=== PATIENT | female | born 1980 | race Caucasian/White ===

== ENCOUNTER 2016-09-01 17:56 | Emergency (ER) | payer OTHER ==
[~2016-09-01] VITALS: Ht 160 cm; Wt 80.0 kg
[2016-09-01 18:05] VITALS: Ht 160 cm; Wt 80.0 kg
[2016-09-01] MEDS ORDERED: KETOROLAC 30 MG INJ IM STA (18:18)
[2016-09-01] MEDS ORDERED: OXYCODONE/ACETAMINOPHEN (5/325) TAB PO ONE (18:30)
--- NOTE | 2016-09-01 18:36 | RADRPT ---
PROCEDURE: Chest x-ray CLINICAL INDICATION: Trauma with chest pain TECHNIQUE: Chest single view COMPARISON: None FINDINGS: The heart is normal in size. The pulmonary vessels are normal in caliber. There is low lung volumes with bibasilar atelectasis and accentuation lung markings. No pneumothorax is seen. Costophrenic angles are sharp. Bony thorax is unremarkable. IMPRESSION: 1. Low lung volumes with basilar atelectasis. 2. Right lower lung calcified granuloma. 3. No pneumothorax RPTAT: HH .Shen Myers MD, MD Date Time Electronically viewed and signed by .Shen Myers MD, MD on 09/01/2016 18:36 .W/
[2016-09-01] MEDS ORDERED: IBUP-1542 PO (18:54)
[2016-09-01] MEDS ORDERED: CARI350T PO (18:54)
[2016-09-01 19:26] VITALS: BP 107/63; PULSE 78; RESP 20; TEMP 98.1
--- NOTE | 2016-09-01 19:58 | ERD ---
ER Documentation Chief Complaint Date/Time DATE: 09/01/16 TIME: 19:56 Chief Complaint IRON POLE FELL ON HER CHEST HPI 35-year-old woman complains of left lateral chest wall pain and pain to the chest underneath her left breast after a metal pole fell onto her chest. She denies head or neck injury, no difficulty breathing, no loss of consciousness no complaints of paresis or paresthesias. ROS All systems reviewed and are negative except as per history of present illness. Medications Home Meds Active Scripts Carisoprodol* (Soma*) 350 Mg Tablet, 350 MG PO TID for PAIN, #12 TAB Prov:CHRISTIAN VALENTIN MD 09/01/16 Ibuprofen* (Ibuprofen*) 600 Mg Tablet, 600 MG PO Q8 for PAIN AND/OR INFLAMMATION , #30 TAB Prov:CHRISTIAN VALENTIN MD 09/01/16 PMhx/Soc Medical and Surgical Hx: pt denies Medical Hx, pt denies Surgical Hx History of Surgery: No Anesthesia Reaction: No Hx Neurological Disorder: No Hx Respiratory Disorders: No Hx Cardiac Disorders: No Hx Alcohol Use: No Hx Substance Use: No Hx Tobacco Use: No Smoking Status: Never smoker FmHx Family History: No diabetes Physical Exam Vitals Vital Signs Date Time Temp Pulse Resp B/P Pulse Ox O2 Delivery O2 Flow Rate FiO2 09/01/16 19:26 98.1 78 20 107/63 100 Room Air 09/01/16 18:05 98.1 58 20 100/56 99 Physical Exam GENERAL: Well-developed, well-nourished, well-hydrated, in no apparent distress , looks nontoxic in appearance HEENT: Moist mucous membranes, pink conjunctiva, no cervical spine tenderness or step-off deformities, no goiter, no jaundice or icterus, extraocular movements intact without pain. No submandibular induration, and no pharyngeal erythema NEURO: Alert and oriented 3, cranial nerves II through XII intact bilaterally, pupils equal round reactive to light, no focal deficits or facial asymmetry, sensation intact distally Strength 5/5 in upper and lower extremities bilaterally CARDIAC: Regular rate and rhythm, no murmurs rubs or gallops LUNGS: Clear bilaterally no wheezing crackles or stridor ABDOMEN: Soft nontender, no guarding, no rigidity, no rebound, no psoas sign no obturator sign. Normoactive bowel sounds SKIN: Warm and dry to touch, no abrasions, contusions, or hematomas, no lacerations, no ecchymosis, no target lesions, and without ulcers EXTREMITIES: No clubbing cyanosis or edema, calves are bilaterally symmetrical, no Homans sign, no popliteal cord sign. Distal pulses equal and bilateral PSYCH: Normal affect without agitation or irritability Results 24 hrs Current Medications Medications (Trade) Dose Ordered Sig/Rosie Route PRN Reason Start Time Stop Time Status Last Admin Dose Admin Ketorolac Tromethamine (Toradol) 30 mg ONCE STAT IM 09/01/16 18:18 09/01/16 18:20 DC 09/01/16 18:38 Oxycodone/ Acetaminophen (Percocet (5/ 325)) 1 tab ONCE ONCE PO 09/01/16 18:30 09/01/16 18:31 DC 09/01/16 18:38 Procedures/MDM There is moderate reproducible tenderness over the left lateral chest and chest underneath the left breast, no soft tissue contusion, no crepitus, no bony deformity or ecchymosis was noted. Chest X-ray 1V Interpreted by me: Soft Tissue: No acute abnormalities Bones: No acute abnormalities Mediastinum/Cardiac Silhouette/Lungs: No acute abnormalities I administered Toradol 30 mg intramuscular injection and Percocet 1 tablet p.o. with good pain control. Differential diagnoses considered, included but not limited to acute coronary syndrome, pulmonary embolism, aortic dissection, abdominal aortic aneurysm, sepsis, stroke, meningitis, encephalitis, pneumonia, appendicitis, cholecystitis , bowel obstruction, pyelonephritis, nephrolithiasis, cystitis, as well as metabolic, hematologic, and electrolyte abnormalities. As well as abscess, cellulitis, fractures, and dislocations. Patient feels much better at this time, and vital signs are normal, symptoms have improved. I did give strict instructions to return to the ED if symptoms continue or worsen, patient will otherwise follow-up with primary care physician. Patient understood instructions and agreed to plan. Disclaimer: Inadvertent spelling and grammatical errors are likely due to EHR/ dictation software use and do not reflect on the overall quality of patient care. Also, please note that the electronic time recorded on this note does not necessarily reflect the actual time of the patient encounter. Departure Diagnosis: Primary Impression: Chest wall contusion Condition: Good Patient Instructions: Chest Wall Contusion CHRISTIAN VALENTIN MD Sep 01, 2016 19:58
== END 2016-09-01 19:28 | disposition home or self-care (01) ==
LOC: E/R 17:56
DX: S20.212A Contusion of left front wall of thorax, initial encounter (principal); W20.8XXA Other cause of strike by thrown, projected or falling object, initial encounter; Y92.9 Unspecified place or not applicable
CPT/HCPCS: 71010; 96372; J1885; Z7502; Z7610